=== PATIENT | male | born 1930 | race Hispanic/Latino ===

== ENCOUNTER 2016-11-18 15:28 | Emergency (ER) | payer MEDICARE, OTHER ==
[~2016-11-18] VITALS: Ht 165.1 cm; Wt 75.0 kg
[2016-11-18] MEDS ORDERED: LOPRESSOR25 M1 PO (17:28)
[2016-11-18] MEDS ORDERED: CLOPIDOGREL75 MG PO (17:29)
[2016-11-18] MEDS ORDERED: JANUVIA100 MG PO (17:29)
[2016-11-18] MEDS ORDERED: AMLODIPINE BESY10 MG PO (17:29)
[2016-11-18] MEDS ORDERED: DUTASTERIDE0.5 MG PO (17:30)
[2016-11-18] MEDS ORDERED: GABAPENTIN300 MG PO (17:31)
[2016-11-18] MEDS ORDERED: PRAVASTATIN SOD40 MG PO (17:31)
[2016-11-18] MEDS ORDERED: TRAVATAN Z0.004 % OU (17:32)
[2016-11-18 17:50] VITALS: BP 149/74
== END 2016-11-18 17:50 | disposition home or self-care (01) ==
LOC: ED 15:28
DX: S00.11XA Contusion of right eyelid and periocular area, initial encounter (principal); S50.01XA Contusion of right elbow, initial encounter; S00.31XA Abrasion of nose, initial encounter; H11.31 Conjunctival hemorrhage, right eye; I10 Essential (primary) hypertension; E11.9 Type 2 diabetes mellitus without complications; W01.0XXA Fall on same level from slipping, tripping and stumbling without subsequent striking against object, initial encounter